=== PATIENT | male | born 1975 | race African-American/Black ===

== ENCOUNTER 2019-02-19 18:42 | Emergency (ER) | payer OTHER ==
[~2019-02-19] VITALS: Ht 180.3 cm; Wt 195.4 kg
[~2019-02-19 18:42] MED LIST: GARL200T PO; MULT-1234 MT
[2019-02-19] MEDS ORDERED: KETOROLAC 30MG/ML VIAL IV ONE (19:15)
[2019-02-19 19:26] LABS: EOSINOPHILS % 2.5 % (0.0-5.0); HEMATOCRIT. 39.1 % (42.0-52.0); HEMOGLOBIN. 13.1 g/dL (14.0-18.0); LYMPHOCYTES % 40.5 % (20.0-50.0); MEAN CORPUSCULAR HEMOGLOBIN 30.3 pg (28.0-32.0); MEAN CORPUSCULAR VOLUME 90.3 fL (80.0-94.0); MEAN PLATELET VOLUME 8.9 fl (7.4-10.4); MONOCYTES % 10.2 % (2.0-8.0); NEUTROPHILS % 45.8 % (40.0-76.0); PLATELET 252 x1000/uL (130-400); RED BLOOD CELL COUNT 4.33 mill/uL (4.7-6.1); RED CELL DISTRIBUTION WIDTH 13.9 % (11.6-14.6)
[2019-02-19 19:31] LABS: CHLORIDE 105 mEq/L (98-107)
[2019-02-19] MEDS ORDERED: ASPIRIN 81MG TABLET PO ONE (20:15)
[2019-02-19 20:53] VITALS: BP 154/80
== END 2019-02-19 21:10 | disposition home or self-care (01) ==
LOC: ER 18:42
DX: G89.18 Other acute postprocedural pain (principal); R07.89 Other chest pain; I10 Essential (primary) hypertension; I49.9 Cardiac arrhythmia, unspecified; F17.290 Nicotine dependence, other tobacco product, uncomplicated; Z95.0 Presence of cardiac pacemaker; Z79.899 Other long term (current) drug therapy
CPT/HCPCS: 36415; 71045; 80053; 83880; 84484; 85025; 93005; 99284; Z7610; J1885

== ENCOUNTER 2020-10-24 12:25 | Emergency (ER) | payer OTHER ==
[~2020-10-24] VITALS: Ht 180.3 cm; Wt 170.0 kg
[~2020-10-24 12:25] MED LIST changes: +ASPI-1497 MT; +ATOR10TA69 MT; +METO-539 MT
[2020-10-24] MEDS ORDERED: ONDANSETRON HCL 4MG/2ML INJ IV STA (13:12)
[2020-10-24] MEDS ORDERED: MORPHINE SULFATE 4 MG/ML CPJ (NOT FOR IM USE) IV STA (13:12)
[2020-10-24] MEDS ORDERED: SODIUM CHLORIDE 0.9% 1,000 ML IV ONE (13:15)
[2020-10-24 13:41] LABS: BASOPHILS % 0.3 % (0.0-2.0); EOSINOPHILS % 0.3 % (0.0-5.0); HEMATOCRIT. 35.1 % (42.0-52.0); HEMOGLOBIN. 11.6 g/dL (14.0-18.0); LYMPHOCYTES % 8.9 % (20.0-50.0); MEAN CORPUSCULAR HEMOGLOBIN 27.9 pg (28.0-32.0); MEAN CORPUSCULAR VOLUME 84.4 fL (80.0-94.0); MEAN PLATELET VOLUME 8.3 fl (7.4-10.4); MONOCYTES % 12.4 % (2.0-8.0); NEUTROPHILS % 78.1 % (40.0-76.0); PLATELET 420 x1000/uL (130-400); RED BLOOD CELL COUNT 4.15 mill/uL (4.7-6.1); RED CELL DISTRIBUTION WIDTH 13.7 % (11.6-14.6)
[2020-10-24 13:42] LABS: CHLORIDE 100 mEq/L (98-107)
[2020-10-24 13:46] LABS: INR 1.2; PROTHROMBIN TIME 13.1 sec (9.6-11.0)
[2020-10-24] MEDS ORDERED: ACETAMINOPHEN 325MG TABLET PO ONE (14:30)
[2020-10-24 14:35] LABS: CLARITY URINE CLOUDY (CLEAR); COLOR URINE DARK YELLOW (YELLOW); KETONES URINE 1+ (NEGATIVE); LEUKOCYTE ESTERASE URINE TRACE (NEGATIVE); NITRITE URINE NEGATIVE (NEGATIVE); OCCULT BLOOD URINE 3+ (NEGATIVE); PROTEIN URINE 3+ (NEGATIVE); SPECIFIC GRAVITY URINE 1.032 (1.005-1.030)
[2020-10-24 15:15] VITALS: BP 138/77
[2020-10-24] MEDS ORDERED: AMOX-494 MT (15:24)
== END 2020-10-24 15:15 | disposition home or self-care (01) ==
LOC: ER 13:35
DX: N30.90 Cystitis, unspecified without hematuria (principal); R10.9 Unspecified abdominal pain; F41.9 Anxiety disorder, unspecified; I10 Essential (primary) hypertension; Z95.0 Presence of cardiac pacemaker; Z85.038 Personal history of other malignant neoplasm of large intestine
CPT/HCPCS: 36415; 74176; 80053; 81003; 83690; 85025; 85610; 93005; 99285; J2405; J7030; J2270

== ENCOUNTER 2020-11-15 09:50 | Emergency (ER) | payer OTHER ==
[~2020-11-15] VITALS: Ht 180.3 cm; Wt 184.5 kg
[~2020-11-15 09:50] MED LIST changes: +AMOX-494 MT
[2020-11-15] MEDS ORDERED: ONDANSETRON HCL 4MG/2ML INJ IV STA (12:59)
[2020-11-15] MEDS ORDERED: MORPHINE SULFATE 4 MG/ML CPJ (NOT FOR IM USE) IV STA (12:59)
[2020-11-15] MEDS ORDERED: SODIUM CHLORIDE 0.9% 1,000 ML IV ONE (13:00)
[2020-11-15 13:10] LABS: BASOPHILS % 0.4 % (0.0-2.0); EOSINOPHILS % 0.6 % (0.0-5.0); HEMATOCRIT. 32.2 % (42.0-52.0); HEMOGLOBIN. 10.6 g/dL (14.0-18.0); LYMPHOCYTES % 12.9 % (20.0-50.0); MEAN CORPUSCULAR HEMOGLOBIN 26.9 pg (28.0-32.0); MEAN CORPUSCULAR VOLUME 82.3 fL (80.0-94.0); MEAN PLATELET VOLUME 8.8 fl (7.4-10.4); MONOCYTES % 13.1 % (2.0-8.0); PLATELET 360 x1000/uL (130-400); RED BLOOD CELL COUNT 3.92 mill/uL (4.7-6.1); RED CELL DISTRIBUTION WIDTH 14.4 % (11.6-14.6)
[2020-11-15 13:16] LABS: INR 1.3; PROTHROMBIN TIME 13.5 sec (9.6-11.0)
[2020-11-15 13:18] LABS: CHLORIDE 100 mEq/L (98-107)
[2020-11-15] MEDS ORDERED: HYDROCODONE/ACETAMINOPHEN 10/325MG TABLET PO ONE (13:30)
[2020-11-15] MEDS ORDERED: ONDANSETRON 4MG ODT PO ONE (13:30)
[2020-11-15] MEDS ORDERED: CEFTRIAXONE 1 G PREMIX 50 ML IV ONE (16:15)
[2020-11-15] MEDS ORDERED: METRONIDAZOLE 500 MG PREMIX 100 ML IV ONE (16:15)
[2020-11-15 19:24] VITALS: BP 124/80
== END 2020-11-15 19:30 | disposition short-term general hospital (02) ==
LOC: ER 10:16
DX: K57.92 Diverticulitis of intestine, part unspecified, without perforation or abscess without bleeding (principal); I10 Essential (primary) hypertension; Z95.0 Presence of cardiac pacemaker; Z98.890 Other specified postprocedural states; Z85.038 Personal history of other malignant neoplasm of large intestine; Z79.899 Other long term (current) drug therapy; Z87.09 Personal history of other diseases of the respiratory system
CPT/HCPCS: 36415; 74176; 80053; 83690; 85025; 85610; 93005; 96365; 96368; 99285; J0696; J3490; J7030; Q0162; Z7610

== ENCOUNTER 2021-10-09 19:59 | Emergency (ER) | payer OTHER ==
[~2021-10-09] VITALS: Ht 177.8 cm; Wt 200.0 kg
[2021-10-09] MEDS ORDERED: FAMOTIDINE 20MG/2ML VIAL IV STA (20:12)
[2021-10-09] MEDS ORDERED: MORPHINE SULFATE 4 MG/ML CPJ (NOT FOR IM USE) IV STA (20:12)
[2021-10-09] MEDS ORDERED: ONDANSETRON HCL 4MG/2ML INJ IV STA (20:12)
[2021-10-09] MEDS ORDERED: SODIUM CHLORIDE 0.9% 1,000 ML IV ONE (20:15)
[2021-10-09 21:15] LABS: HEMATOCRIT. 44.9 % (42.0-52.0); HEMOGLOBIN. 14.7 g/dL (14.0-18.0); MEAN CORPUSCULAR HEMOGLOBIN 30.8 pg (28.0-32.0); PLATELET 175 x1000/uL (130-400); RED BLOOD CELL COUNT 4.78 mill/uL (4.7-6.1); RED CELL DISTRIBUTION WIDTH 13.9 % (11.6-14.6)
[2021-10-09 21:30] LABS: CHLORIDE 111 mEq/L (98-107)
[2021-10-09] MEDS ORDERED: IOHEXOL-300 100 ML BOTTLE ONE (23:22)
[2021-10-09 23:24] LABS: PLATELET ESTIMATE NORMAL
[2021-10-10] MEDS ORDERED: VANCOMYCIN 1,000 MG in DEXT 5% WATER 250 ML IV SCH ×2
[2021-10-10] MEDS ORDERED: SODIUM CHLORIDE 0.9% 1000ML BAG (SEPSIS BOLUS) IV ONE
[2021-10-10] MEDS ORDERED: PIPERACILLIN/TAZ 3.375G PREMIX 50 ML IV SCH
[2021-10-10 00:04] LABS: PROTHROMBIN TIME 11.1 sec (9.6-11.0)
[2021-10-10 01:50] VITALS: BP 144/77
== END 2021-10-10 02:29 | disposition short-term general hospital (02) ==
LOC: ER 19:59 → CANBEDREQ 10-10 06:09
DX: A41.9 Sepsis, unspecified organism (principal); R65.20 Severe sepsis without septic shock; R11.2 Nausea with vomiting, unspecified; R19.7 Diarrhea, unspecified; R79.89 Other specified abnormal findings of blood chemistry; I25.10 Atherosclerotic heart disease of native coronary artery without angina pectoris; I10 Essential (primary) hypertension; Z95.0 Presence of cardiac pacemaker; Z79.899 Other long term (current) drug therapy
CPT/HCPCS: 36415; 71045; 74177; 80053; 83605; 83690; 84145; 84484; 85025; 85610; 87040; 93005; 96361; 96365; 96366; 96368; 96375; 99291; J2270; J2405; J2543; J3370; J3490; J7030; J7060; Q9967

== ENCOUNTER 2024-12-31 12:53 | Emergency (ER) | payer OTHER ==
[~2024-12-31] VITALS: Ht 180.3 cm; Wt 208.0 kg
[2024-12-31 13:08] VITALS: O2SAT 97
[2024-12-31] MEDS: ACETAMINOPHEN 325MG TABLET PO ONE (13:45)
[2024-12-31 14:17] LABS: BASOPHILS % 0.4 % (0.0-2.0); EOSINOPHILS % 0.5 % (0.0-5.0); HEMATOCRIT. 38.2 % (42.0-52.0); HEMOGLOBIN. 12.5 g/dL (14.0-18.0); LYMPHOCYTES % 22.0 % (20.0-50.0); MEAN PLATELET VOLUME 9.2 fl (7.4-10.4); MONOCYTES % 11.4 % (2.0-8.0); NEUTROPHILS % 65.7 % (40.0-76.0); PLATELET 221 x1000/uL (130-400); RED BLOOD CELL COUNT 4.16 mill/uL (4.7-6.1); RED CELL DISTRIBUTION WIDTH 13.6 % (11.6-14.6)
[2024-12-31 14:31] LABS: CREATININE 1.0 mg/dL (0.6-1.3); UREA NITROGEN BLOOD 8 mg/dL (9-23)
[2024-12-31 14:33] LABS: ASPARTATE AMINOTRANSFERASE 20 IU/L (<34); BILIRUBIN DIRECT 0.2 mg/dL (<=3.0)
[2024-12-31 14:34] LABS: BILIRUBIN TOTAL 0.7 mg/dL (0.1-1.0); PROTEIN TOTAL 7.5 g/dL (6.0-8.3)
[2024-12-31] MEDS ORDERED: AMOX1TAB16 MT (16:15)
[2024-12-31] MEDS: ACETAMINOPHEN 325MG TABLET PO SCH (16:16)
[2024-12-31 16:37] VITALS: BP 111/56; PULSE 52; RESP 16; TEMP 37.1; O2SAT 99
[2024-12-31] MEDS ORDERED: IOHEXOL-300 100 ML BOTTLE ONE (23:40)
== END 2024-12-31 16:56 | disposition home or self-care (01) ==
LOC: ER 12:53
DX: R10.31 Right lower quadrant pain (principal); J03.90 Acute tonsillitis, unspecified; I25.10 Atherosclerotic heart disease of native coronary artery without angina pectoris; I10 Essential (primary) hypertension; E78.00 Pure hypercholesterolemia, unspecified; Z79.899 Other long term (current) drug therapy; Z95.810 Presence of automatic (implantable) cardiac defibrillator; Z79.82 Long term (current) use of aspirin; Z85.038 Personal history of other malignant neoplasm of large intestine
CPT/HCPCS: 80076; 80048; 83690; 85025; 36415; 70491; 74177; 93005; 99285; Q9967; Z7610

== ENCOUNTER 2025-01-02 08:18 | Emergency (ER) | payer BC, OTHER ==
[~2025-01-02] VITALS: Ht 180.3 cm; Wt 213.0 kg
[~2025-01-02 08:18] MED LIST changes: +AMOX1TAB16 MT
[2025-01-02 08:35] VITALS: O2SAT 99
[2025-01-02 09:15] LABS: BASOPHILS % 0.4 % (0.0-2.0); EOSINOPHILS % 0.3 % (0.0-5.0); HEMATOCRIT. 39.3 % (42.0-52.0); HEMOGLOBIN. 12.8 g/dL (14.0-18.0); LYMPHOCYTES % 13.0 % (20.0-50.0); MEAN PLATELET VOLUME 9.6 fl (7.4-10.4); MONOCYTES % 9.7 % (2.0-8.0); NEUTROPHILS % 76.6 % (40.0-76.0); PLATELET 231 x1000/uL (130-400); RED BLOOD CELL COUNT 4.26 mill/uL (4.7-6.1); RED CELL DISTRIBUTION WIDTH 13.3 % (11.6-14.6)
[2025-01-02 09:26] LABS: CREATININE 1.0 mg/dL (0.6-1.3); UREA NITROGEN BLOOD 8 mg/dL (9-23)
[2025-01-02 09:30] LABS: INR 1.1
[2025-01-02] MEDS: DEXAMETHASONE 4MG TABLET PO ONE (09:50)
[2025-01-02] MEDS: ACETAMINOPHEN 325MG TABLET PO ONE (09:50)
[2025-01-02] MEDS ORDERED: MORPHINE SULFATE 4 MG/ML INJ (FOR IV/IM USE) IV ONE (10:00)
[2025-01-02] MEDS ORDERED: CLINDAMYCIN 900 MG in DEXTROSE 5% WATER 50 ML IV ONE (10:00)
[2025-01-02] MEDS: MORPHINE SULFATE 4 MG/ML INJ (FOR IV/IM USE) IV NR (10:30)
[2025-01-02] MEDS: LIDOCAINE HCL/EPINEPHRINE 1%-EPI 1:100,000 10ML VIAL INFIL ONE (11:26)
[2025-01-02] MEDS: CLINDAMYCIN 900MG PREMIX 50 ML IV NR (12:40)
[2025-01-02] MEDS ORDERED: CLIN-194 MT (17:00)
[2025-01-02] MEDS: CLINDAMYCIN HCL 150MG CAPSULE PO SCH (17:20)
[2025-01-02 17:41] VITALS: BP 139/87; PULSE 90; RESP 22; TEMP 36.9; O2SAT 99
== END 2025-01-02 17:23 | disposition home or self-care (01) ==
LOC: ER 08:18 → EDBEDREQ 11:39 → EDBEDREQTM 11:39 → EDBEDREQSVC 11:39 → CANBEDREQ 12:46 → ER 17:23
DX: J36 Peritonsillar abscess (principal); E78.00 Pure hypercholesterolemia, unspecified; I10 Essential (primary) hypertension; Z79.899 Other long term (current) drug therapy; Z98.890 Other specified postprocedural states
CPT/HCPCS: 80048; 85025; 85610; 36415; 70491; 96365; 96375; 99285; Q9967; J8540; J3490; J2270; Z7610; 10160; J7060